=== PATIENT | female | born 1950 | race Caucasian/White ===

== ENCOUNTER → 2023-09-21 12:34 | Outpatient (REF) | payer MEDICARE, SELFPAY | LOC: HWRAD 12:34 | PROVIDERS: ATTENDING PHYSICIAN Physician Assistant; FAMILY PHYSICIAN Family Medicine | DX: M25.531 Pain in right wrist (principal); M25.532 Pain in left wrist; M35.3 Polymyalgia rheumatica; M79.641 Pain in right hand; M79.642 Pain in left hand | CPT/HCPCS: 73110; 73130 ==

== ENCOUNTER → 2023-11-24 13:08 | Outpatient (REF) | payer MEDICARE, SELFPAY | LOC: HWRCS 13:08 | PROVIDERS: ATTENDING PHYSICIAN Internal Medicine Cardiovascular Disease; FAMILY PHYSICIAN Family Medicine | DX: I34.0 Nonrheumatic mitral (valve) insufficiency (principal) | CPT/HCPCS: 93306 ==

== ENCOUNTER → 2024-04-06 06:30 | Day surgery (SDC) | payer MEDICARE, SELFPAY | LOC: GI 06:30 | PROVIDERS: ATTENDING PHYSICIAN Internal Medicine Gastroenterology; FAMILY PHYSICIAN Family Medicine | DX: Z12.11 Encounter for screening for malignant neoplasm of colon (principal); K57.30 Diverticulosis of large intestine without perforation or abscess without bleeding; K64.8 Other hemorrhoids; Z83.719 Family history of colon polyps, unspecified | CPT/HCPCS: G0105 ==

== ENCOUNTER → 2024-04-10 12:54 | Outpatient (REF) | payer MEDICARE, SELFPAY | LOC: HWWDC 12:54 | PROVIDERS: ATTENDING PHYSICIAN Family Medicine | DX: M85.89 Other specified disorders of bone density and structure, multiple sites (principal); Z12.31 Encounter for screening mammogram for malignant neoplasm of breast | CPT/HCPCS: 77063; 77067; 77080 ==

== ENCOUNTER 2024-05-15 07:29 | Day surgery (SDC) | payer MEDICARE, SELFPAY ==
[2024-05-15] VITALS (20 sets, daily range): BP systolic 117–162; BP diastolic 53–136; BMI 31.3
[2024-05-15 08:25] LABS: Hematocrit 37.6 % (37.0-47.0); Hemoglobin 12.3 g/dL (12.0-16.0); Mean Corp Hgb Conc. 32.7 g/dL (33.0-37.0); Mean Corpuscular Hgb 30.2 pg (27.0-31.0); Mean Corpuscular Volume 92.4 fL (81.0-99.0); Mean Platelet Volume 9.6 fL (7.4-10.4); Platelet Count 244 10^3/uL (130-400); Red Blood Cell Count 4.07 10^6/uL (4.20-5.40); Red Cell Dist. Width 14.9 % (11.5-14.5); White Blood Cell Count 7.8 10^3/uL (4.8-10.8)
[2024-05-15 08:40] LABS: ALT (SGPT) 16 U/L (0-35); AST (SGOT) 19 U/L (14-36); Albumin 3.9 g/dl (3.5-5.0); Alkaline Phosphatase 74 U/L (38-126); Blood Urea Nitrogen 19 mg/dl (7-17); Calcium 8.7 mg/dl (8.4-10.2); Carbon Dioxide 28 mmol/L (22-30); Chloride 103 mmol/L (98-107); Estimated Creatinine Clearance 94 ml/min; Glucose 100 mg/dl (70-99); Potassium 4.2 mmol/L (3.5-5.1); Sodium 138 mmol/L (135-145); Total Bilirubin 0.3 mg/dl (0.2-1.3); Total Protein 6.3 g/dl (6.3-8.2); eGFR > 60.00
[2024-05-15] MEDS: LOW STRENGTH ASPIRIN 324 MG PO (09:04)
[2024-05-15 10:17] LABS: ACT-LR - POC 245 Seconds (116-155)
[2024-05-15 10:25] LABS: ACT-LR - POC 253 Seconds (116-155)
[2024-05-15 10:34] LABS: ACT-LR - POC 290 Seconds (116-155)
[2024-05-15 11:03] LABS: ACT-LR - POC 253 Seconds (116-155)
--- NOTE | 2024-05-15 12:34 | ITS.CL.CATH ---
Desktop Architect - Catheterization
Cardiac Catheterization
Procedure Report:
LEFT HEART CATHETERIZATION
Date of Procedure: May 15, 2024
Referring: Eliot Sharpe
PROCEDURES:
1. Left heart catheterization, coronary angiogram.
2. Ultrasound-guided access.
3. Functional physiologic testing with IFR of ostial left circumflex.
4. Functional physiologic testing with IFR of ostial RCA.
5. Attempted percutaneous coronary artery intervention of mid LAD heavily calcified subtotal occlusion, eventually aborted due to inability to cross with a wire despite wire escalation.
INDICATION: Ms. Alston is a 73-year-old female with past medical history of hypertension, hyperlipidemia, paroxysmal atrial fibrillation on longstanding Eliquis, rheumatoid arthritis on chronic steroids and methotrexate (started over of
2023), significant family history of premature coronary artery disease, nondiabetic who is referred for a left heart catheterization to rule out obstructive CAD after undergoing a PET stress CT which was abnormal showing a reversible defect in the
anterior, anteroseptal and anterolateral regions in the setting of having ongoing dyspnea on exertion and exertional chest discomfort since January.
ACCESS: Right radial artery, 6 Kazakh sheath, under ultrasound guidance
Ultrasound was utilized for vascular access. The radial artery was visualized under ultrasound, and the vessel was patent and pulsatile. A printed image was stored permanently in the patient's medical record. Under direct ultrasound guidance, a 6
Kazakh sheath was inserted into the artery using a micropuncture kit through a modified Seldinger technique.
HEMODYNAMICS : (mmHg)
AO (s/d) : 149/68
LV (s/d) : 135/9
LVEDP : 23
CORONARY FINDINGS
DOMINANCE: Right
LEFT MAIN: The left main artery is a large-caliber vessel which gives rise to the left anterior descending artery and the left circumflex artery. There is mild distal tapering.
LEFT ANTERIOR DESCENDING: The left anterior descending artery is a medium to large caliber vessel which gives rise to 2 medium caliber diagonal branches as it courses through the anterior interventricular groove and wraps around the apex. Mid LAD
has a heavily calcified subtotal occlusion at the level of the takeoff of D2 with mid to distal LAD appearing to be a small caliber vessel, possibly underfilled. D2 is a medium caliber branching vessel with eccentric 70% ostial stenosis. D1 is a
small caliber vessel with ostial 60 to 70% stenosis. There is ADELA II flow into the distal LAD. Intervention was attempted as below.
CIRCUMFLEX: The left circumflex artery is a medium caliber vessel which gives rise to 2 small to medium caliber obtuse marginal branches. Ostial left circumflex has a eccentric 50 to 60% calcified stenosis which was IFR negative at 0.97.
RIGHT CORONARY ARTERY: The right coronary artery is a large-caliber, dominant vessel which gives rise to the right posterior descending artery and the right posterolateral system. The ostium of the RCA has a eccentric 50 to 60% stenosis with IFR in
the indeterminate zone as below at 0.91. Mid RCA has 30 to 40% stenosis just beyond the RV marginal branch.
HEMODYNAMIC ASSESSMENT OF THE OSTIAL LEFT CIRCUMFLEX WITH A VOLCANO OMNI WIRE: The origin of the left coronary artery was cannulated with a 6 Fr EBU 3.75 guide catheter. Intravenous heparin was administered and the ACT was followed during the
procedure. Two hundred micrograms of intracoronary nitroglycerin was given through the guide catheter. A [place] Omni wire was advanced to the guide catheter tip and normalized just outside the guide catheter pressure. The Omni wire was then
carefully manipulated across the stenosis in the ostial left circumflex with the iFR above the ischemic threshold serially measuring 0.97, 0.98, 0.98. The Omni wire was then pulled back to the guide catheter where the Pd/Pa measured 1.0 confirming
no baseline drift in pressure readings
CORONARY INTERVENTION: Given the IFR of ostial left circumflex lesion was negative, decision was made to attempt percutaneous intervention to the mid LAD stenosis given it was the most severe and explain the abnormalities noted on stress test.
Additional heparin was given to maintain a therapeutic ACT throughout the case. We initially attempted a 190 cm 0.014' run-through coronary wire however despite multiple passes we could not advance this past the calcified lesion with ongoing
prolapse of the wire. Next, we tried a 300 cm 0.014' integration developer 50 hydrophilic coronary wire through a dewayne microcatheter for additional support and despite multiple passes we could not navigate across the subtotal occlusion. After this, we tried a
300 cm 0.014' Fielder XT coronary wire with a HEEL SHAVER bend at the distal tip and despite multiple passes and use of a microcatheter for support we could not navigate across the lesion. Selective angiography showed that ADELA flow into the distal LAD was
now a little bit worse than when we started at 1-2 (ADELA II flow at the beginning of the case) though patient continues to remain hemodynamically stable with no EKG changes and no symptoms. At this time I discussed the case with my senior
interventional partner, Dr. Rodriguez Mazariegos who reviewed the films and we agreed that we would abort any further escalation and refer for coronary artery bypass grafting. Patient continued to remain stable. We decided to proceed with ostial RCA
functional testing with IFR to assess if RCA would also need to be grafted.
HEMODYNAMIC ASSESSMENT OF THE OSTIAL RCA WITH A VOLCANO OMNI WIRE: The origin of the right coronary artery was cannulated with a 6 Fr JR4 guide catheter. Intravenous heparin was administered and the ACT was followed during the procedure. Two
hundred micrograms of intracoronary nitroglycerin was given through the guide catheter. A [place] Omni wire was advanced to the guide catheter tip and normalized just outside the guide catheter in the ascending aorta. The Omni wire was then
carefully manipulated across the stenosis in the ostial RCA with the iFR serially measuring 0.91, 0.92, 0.92, 0.92. The Omni wire was then pulled back to the guide catheter where the Pd/Pa measured 1.0 confirming no baseline drift in pressure
readings.
SEDATION: 95 minutes of procedural sedation was utilized. An independent medical case manager was present to assist with and help manage the patient's level of consciousness and physiologic status.
RADIATION SUMMARY: Fluoro Time (min): 18.5, Dose (mGy): 709.16, DAP (Gy.cm2) : 49.6
Closure Device: Vascular band over right radial artery, 11 cc of air.
CONCLUSIONS
1. Mid LAD has a heavily calcified subtotal occlusion at the level of the takeoff of D2 with mid to distal LAD appearing to be a small caliber vessel, possibly underfilled. D2 is a medium caliber branching vessel with eccentric 70% ostial
stenosis. D1 is a small caliber vessel with ostial 60 to 70% stenosis. There is ADELA II flow into the distal LAD.
2. Attempted percutaneous coronary artery intervention of mid LAD heavily calcified subtotal occlusion, eventually aborted due to inability to cross with a wire despite wire escalation.
3. IFR negative 50 to 60% ostial left circumflex stenosis, IFR of 0.97.
4. The ostium of the RCA has a eccentric 50 to 60% stenosis with IFR in the indeterminate zone as below at 0.91. Mid RCA has 30 to 40% stenosis just beyond the RV marginal branch.
5. Elevated LVEDP at 23 mmHg.
RECOMMENDATIONS
1. Consult CT surgery for consideration for coronary artery bypass grafting to LAD, D2, distal RCA/RPDA
2. Wean radial band per protocol.
3. Closely monitor overnight on telemetry. Patient is currently symptom-free.
4. Aggressive management of cardiovascular risk factors.
5. Eventual referral for outpatient cardiac rehab.
Copy to: Eliot Sharpe
Jess Perez MD, FACC, [facility]
--- NOTE | 2024-05-15 13:55 | CONSULT.CT ---
Consultation
-
Date/Time Consultation Requested: 05/15/24
Date/Time Consultation Performed: 05/15/24
Requesting Provider: Mario Perez
Performing Provider: Chelsy De La Fuente
Reason for Consultation: CABG evaluation
Patient History
Physicians
Family Physician: Allison Amaral
Outpatient Manager Style: Viral Christie
Inpatient Manager Style: [facility]
History of Present Illness
Amy Alston is a 73-year-old female who presented on 05/15/2024 for elective left heart cath to evaluate an abnormal PET stress CT with reversible defect in the anterior, anteroseptal and anterolateral regions in the setting of having
ongoing dyspnea on exertion and exertional chest discomfort ('indigestion/pressure sensation') since January. Patient has a history significant for hypertension, hyperlipidemia, obesity, rheumatoid arthritis (on methotrexate and steroid since
March 2024), and paroxysmal atrial fibrillation with last Eliquis ingested on 05/12/2024.
left heart cath (05/15/[address] Perez):
LEFT MAIN: mild distal tapering.
LEFT ANTERIOR DESCENDING: subtotal occlusion mid LAD. 70% ostial D2 stenosis. Ostial 60 to 70% stenosis of small caliber D1. There is ADELA II flow into the distal LAD. Intervention was attempted
CIRCUMFLEX: Ostial left circumflex has a eccentric 50 to 60% calcified stenosis which was IFR negative at 0.97.
RIGHT CORONARY ARTERY: Eccentric 50 to 60% ostial RCA stenosis with IFR in the indeterminate zone as below at 0.91. Mid RCA has 30 to 40% stenosis just beyond the RV marginal branch.
TTE (11/24/23):
EF 60 to 65%. Mild posterior mitral valve leaflet prolapse with mild�moderate mitral regurgitation
Past Medical History
Past Medical History: Atrial Fib (on Eliquis), HTN, Hypercholesterolemia and Other (Rheumatoid arthritis on methotrexate and prednisone, overactive bladder, obesity (BMI 31.2))
Past Surgical History
Past Surgical History: Orthopedic (Right total knee replacement) and Other (Bilateral cataract extraction)
Family History
Father: Cause of (DC age 71)
Social History
Alcohol: Occasional (2 x week)
Drug: None
Tobacco: Non-Smoker
Personal:
Living: With Family
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
Allergies
Allergy/AdvReac Type Severity Reaction Status Date / Time
atorvastatin Allergy lightheaded, Verified 05/15/24 08:21
dizzy
azithromycin Allergy hypertensio Verified 05/15/24 08:21
[From Zithromax Z-Faheem] n
nickel Allergy HIVES/PRURI Verified 05/15/24 08:21
TIS
neoprene Allergy Rash Uncoded 05/15/24 08:21
Home Medications
�Medication �Instructions �Recorded �Confirmed �Type
Sunflower 3 1 tab PO DAILY 04/20/22 05/15/24 History
rnflyds-azwvvypyx-duce 333 mg-133 1 tab PO DAILY 04/20/22 05/15/24 History
mg-5 mg tablet
cholecalciferol (vitamin D3) 25 25 mcg PO DAILY 04/20/22 05/15/24 History
mcg (1,000 unit) chewable tablet
(Vitamin D3)
coenzyme Q10 100 mg capsule (Co 100 mg PO DAILY 04/20/22 05/15/24 History
Q-10)
estradiol 1.25 gram/actuation 1.25 g transdermal DAILY 04/20/22 05/15/24 History
(0.06%) transdermal gel pump
(EstroGel)
lactobacillus combination no.4 3 3,000 mmu cells PO DAILY 04/20/22 05/15/24 History
billion cell capsule (Probiotic)
mirabegron 25 mg tablet,extended 50 mg PO HS 04/20/22 05/15/24 History
release 24 hr (Myrbetriq)
multivitamin 1 tab PO DAILY 04/20/22 05/15/24 History
rosuvastatin 5 mg tablet 5 mg PO MOWEFR 04/20/22 05/15/24 History
apixaban 5 mg tablet (Eliquis) 5 mg PO BID #1 tab 05/13/22 05/15/24 Rx
losartan 50 mg tablet 50 mg PO DAILY #1 tab 05/13/22 05/15/24 Rx
acetaminophen 500 mg tablet 1,000 mg PO Q6H PRN Arthritis in 05/15/24 05/15/24 History
(Acetaminophen Extra Strength) wrists, Headache
amlodipine 5 mg tablet 5 mg PO HS 05/15/24 05/15/24 History
folic acid 1 mg tablet 1 mg PO DAILY 05/15/24 05/15/24 History
hyoscyamine 0.15 mg tablet 0.25 mg PO BID 05/15/24 05/15/24 History
methotrexate 2.5 mg/mL oral 15 mg PO SA 05/15/24 05/15/24 History
solution
metoprolol succinate 25 mg 12.5 mg PO BID 05/15/24 05/15/24 History
tablet,extended release 24 hr
minoxidil 2.5 mg tablet 2.5 mg PO DAILY 05/15/24 05/15/24 History
prednisone 5 mg tablet 4 mg PO DAILY 05/15/24 05/15/24 History
Review of Systems
-
History Source: Patient
General: Reports Fatigue
HEENT: Reports No Symptoms
Respiratory: Reports No Symptoms
Cardiac: Reports Chest Pain
Abdomen/GI: Reports No Symptoms
: Reports No Symptoms
Musculoskeletal: Reports No Symptoms
Skin: Reports No Symptoms
Neurological: Reports No Symptoms
Vascular: Reports No Symptoms
Physical Exam
Vital Signs
Temp 97.4 F 05/15/24 07:50
Temp route: Oral 05/15/24 07:50
Pulse 68 05/15/24 13:45
Resp Rate 21 05/15/24 13:45
Blood pressure 125/56 05/15/24 13:30
Blood pressure extremity used: Left upper arm 05/15/24 12:57
Position: Lying 05/15/24 12:57
MAP (cuff-Melissa Monitor) 77 05/15/24 13:30
SaO2 97 05/15/24 13:45
Oxygen Mode of Delivery Room air 05/15/24 12:57
Can the patient verbally communicate their pain? Yes 05/15/24 12:57
Actual Weight 100.7 kg 05/15/24 07:48
Body Mass Index (BMI) 31.3 05/15/24 07:48
Labs
05/15/24 08:12
05/15/24 08:12
Exam
General: Well Developed, Well Nourished and No Apparent Distress
HEENT: Normocephalic, Anicteric and Moist Mucous Membranes
Neck: Trachea Midline
Respiratory: Clear
Cardiac: Irregular Rhythm
GI: Soft, Non Tender, Non Distended and Normal Bowel Sounds
Rectal: Deferred by Provider
Skin: Warm and Dry
Neuro: AO x 3, No Motor Deficits and Nonfocal/Grossly Intact
Extremities: Pulses (+2/4 DP pulses B/L)
Lymph: No Lymphadenopathy
Psych: Calm
Assessment / Plan
-
73-year-old female with multivessel coronary disease and preserved EF by echo from October,
- Last Eliquis dose was 05/12/2024
- Surgeon to review imaging and discuss with Dr. Givens and patient for option of surgery versus stenting versus hybrid approach
- Patient on chronic methotrexate and prednisone
- if deemed surgical candidate patient will need to have losartan held for 2 days prior to surgery
- Will need STS risk score calculation and preop diagnostic orders placed if deemed a surgical candidate
Data Reviewed
-
EKG: Report Reviewed by me and Discussed with Physician
Experience Planning Strategist: Report Reviewed by me and Discussed with Physician
Echo: Report Reviewed by me and Discussed with Physician
Labs: Labs Reviewed by me and Discussed with Physician
--- NOTE | 2024-05-15 16:05 | PTCARENOTE ---
Patient received from the laborer syrup machine. Right radial dressing CDI, ecchymotic. NSR, VSS, deneis chest pain. Plan of care reviewed, call ashton in reach
[2024-05-15] MEDS: CRESTOR 5 MG PO (16:44)
[2024-05-15 18:13] LABS: Total CK 53 U/L (30-135)
[2024-05-15] MEDS: TOPROL XL 12.5 MG PO (20:02)
[2024-05-15] MEDS: LEVSIN PO (20:05)
[2024-05-15] MEDS: MYRBETRIQ EXTENDED RELEASE 50 MG PO (22:10)
[2024-05-15] MEDS: NORVASC 5 MG PO (22:10)
[2024-05-16] VITALS (12 sets, daily range): BP systolic 116–159; BP diastolic 50–102; BMI 30.8
--- NOTE | 2024-05-16 00:22 | PTCARENOTE ---
Rec'd pt at change of shift. Pt AAO*3, VSS, and in NSR on TELE monitor. Pt denies any pain or discomfort. Pt with right radial cath site dressing CDI. Pt agreed to RUE restriction. Pt resting with call ashton in reach. Pt denies any questions
concerns at this time. Plan of care ongoing. See flowchart, worklist, and MAR for full assessment and pt care. Pt resting with call ashton in reach.
[2024-05-16 01:09] LABS: Blood Urea Nitrogen 16 mg/dl (7-17); Calcium 8.3 mg/dl (8.4-10.2); Carbon Dioxide 26 mmol/L (22-30); Chloride 105 mmol/L (98-107); Estimated Creatinine Clearance 110 ml/min; Glucose 103 mg/dl (70-99); Potassium 4.1 mmol/L (3.5-5.1); Sodium 138 mmol/L (135-145); Total CK 51 U/L (30-135); eGFR > 60.00
[2024-05-16 06:14] LABS: Hematocrit 36.2 % (37.0-47.0); Hemoglobin 11.8 g/dL (12.0-16.0); Mean Corp Hgb Conc. 32.6 g/dL (33.0-37.0); Mean Corpuscular Hgb 29.7 pg (27.0-31.0); Mean Corpuscular Volume 91.2 fL (81.0-99.0); Mean Platelet Volume 9.7 fL (7.4-10.4); Platelet Count 229 10^3/uL (130-400); Red Blood Cell Count 3.97 10^6/uL (4.20-5.40); Red Cell Dist. Width 14.9 % (11.5-14.5); White Blood Cell Count 6.9 10^3/uL (4.8-10.8)
[2024-05-16 06:18] LABS: HDL Cholesterol 69 mg/dl; LDL Cholesterol, Calculated 88 mg/dl; Total CK 54 U/L (30-135); Total Cholesterol 177 mg/dl (50-199); Triglyceride 103 mg/dl (10-149); Very Low Density Lipoprotein 20 mg/dl (0-30)
[2024-05-16] MEDS: LEVSIN PO ×2 (07:32→22:45)
[2024-05-16] MEDS: TOPROL XL 12.5 MG PO ×2 (07:37→21:00)
[2024-05-16] MEDS: DELTASONE 4 MG PO (07:37)
[2024-05-16] MEDS: LOW STRENGTH ASPIRIN 81 MG PO (07:38)
[2024-05-16] MEDS: COZAAR 50 MG PO (07:38)
[2024-05-16] MEDS: LONITEN 2.5 MG PO (07:38)
--- NOTE | 2024-05-16 08:57 | PTCARENOTE ---
Assumed care. Chest pain free, NSR. NPO, PO meds given with a sip of water, call ashton in reach
--- NOTE | 2024-05-16 10:47 | CARDSERVLU ---
Echocardiogram with Lumason completed after protocol screening completed. Allergies verified.
Patent IV site: __left FA_
IV site flushed with 0.9% NaCl pre and post administration.
Diluted bolus method utilized to enhance visualization of ventricular almazan.
Total volume given: __1.5__ mL
Patient tolerated all procedures well without complications.
--- NOTE | 2024-05-16 12:01 | PTCARENOTE ---
Patient sent to the dairy lab technician
[2024-05-16 12:46] LABS: ACT-LR - POC 252 Seconds (116-155)
[2024-05-16 12:56] LABS: ACT-LR - POC 277 Seconds (116-155)
[2024-05-16 14:10] LABS: ACT-LR - POC 279 Seconds (116-155)
[2024-05-16 14:25] LABS: ACT-LR - POC 263 Seconds (116-155)
[2024-05-16 14:35] LABS: ACT-LR - POC 298 Seconds (116-155)
[2024-05-16 15:19] LABS: ACT-LR - POC 313 Seconds (116-155)
[2024-05-16 15:29] LABS: ACT-LR - POC 281 Seconds (116-155)
--- NOTE | 2024-05-16 15:44 | CM ---
spoke to pt in room, she is prev indep, lives with her brother in a 1 story home with 1 step to enter. she has a cane and a walker to use if needed. plan is for dc to home when medically stable.
[2024-05-16 15:53] LABS: ACT-LR - POC > 397 Seconds (116-155)
--- NOTE | 2024-05-16 16:28 | PTCARENOTE ---
Patient returned from the geophysical laboratory director awake and alert. Placed on telemetry, EKG completed. VSS, right radial band intact with 12 cc of air. Family at bedside, voided, call ashton in reach
--- NOTE | 2024-05-16 16:32 | ITS.CL.CATH ---
Head Neck Surgeon - Catheterization
Cardiac Catheterization
Procedure Report:
LEFT HEART CATHETERIZATION AND CORONARY INTERVENTION
Date of Procedure: May 16, 2024
Referring: Eliot Sharpe
PROCEDURES:
1. Left heart catheterization, selective left coronary angiogram.
2. Ultrasound-guided access.
3. IVL shockwave atherectomy
4. Successful percutaneous coronary artery intervention of a complex heavily calcified subtotal mid LAD occlusion with one 3.0 x 18 mm Medtronic Rip drug-eluting stent, postdilated with a 3.25 x 8 mm NC balloon at 18 adrianne proximally based on IVUS
guidance with an excellent angiographic result and ADELA-3 flow restored into the distal vessels.
5. Intravascular ultrasound (IVUS)
INDICATION: Ms. Alston is a 73-year-old female with past medical history of hypertension, hyperlipidemia, paroxysmal atrial fibrillation on longstanding Eliquis, rheumatoid arthritis on chronic steroids and methotrexate (started over gi of
2023), significant family history of premature coronary artery disease, nondiabetic who is referred for a left heart catheterization to rule out obstructive CAD after undergoing a PET stress CT which was abnormal showing a reversible defect in the
anterior, anteroseptal and anterolateral regions in the setting of having ongoing dyspnea on exertion and exertional chest discomfort since January. Heart catheterization/coronary angiogram yesterday revealed a heavily calcified subtotal occlusion
in the mid LAD with attempted PCI which was eventually aborted due to inability to cross despite wire escalation. CT surgery evaluated the patient and given multiple significant comorbid conditions and in the setting of chronic steroid use, she was
felt to be not a great surgical candidate. After heart team discussion and lengthy discussion with patient and her family in regards to risk and benefits, decision was to bring her back to the lab to attempt PCI another time.
ACCESS: Right radial artery, 6 Tongan sheath, under ultrasound guidance
Ultrasound was utilized for vascular access. The radial artery was visualized under ultrasound, and the vessel was patent and pulsatile. An image was stored permanently in the patient's medical record. Under direct ultrasound guidance, a 6 Tongan
sheath was inserted into the artery using a micropuncture kit through a modified Seldinger technique.
HEMODYNAMICS : (mmHg)
AO (s/d) : 147/66
LV (s/d) : 151/9
LVEDP : 20
CORONARY FINDINGS
DOMINANCE: Right
LEFT MAIN: The left main artery is a large-caliber vessel which gives rise to the left anterior descending artery and the left circumflex artery. There is mild distal tapering.
LEFT ANTERIOR DESCENDING: The left anterior descending artery is a medium to large caliber vessel which gives rise to 2 medium caliber diagonal branches as it courses through the anterior interventricular groove and wraps around the apex. Mid LAD
has a heavily calcified subtotal occlusion at the level of the takeoff of D2 with mid to distal LAD appearing to be a small caliber vessel, possibly underfilled. D2 is a medium caliber branching vessel with eccentric 70% ostial stenosis. D1 is a
small caliber vessel with ostial 60 to 70% stenosis. There is ADELA II flow into the distal LAD. He proceeded with intervention as below.
CIRCUMFLEX: The left circumflex artery is a medium caliber vessel which gives rise to 2 small to medium caliber obtuse marginal branches. Ostial left circumflex has a eccentric 50 to 60% calcified stenosis which was IFR negative at 0.97 on heart
catheterization yesterday..
RIGHT CORONARY ARTERY: The RCA was not selectively shot again today. On imaging yesterday, the right coronary artery is a large-caliber, dominant vessel which gives rise to the right posterior descending artery and the right posterolateral system.
The ostium of the RCA has an eccentric 50 to 60% stenosis with IFR in the indeterminate zone as below at 0.91. Mid RCA has 30 to 40% stenosis just beyond the RV marginal branch.
CORONARY INTERVENTION: The left coronary artery was selectively engaged using a 6 Tongan EBU 3.75 guide catheter. Additional heparin was given to maintain a therapeutic ACT throughout the case. Using a 6 Tongan guideliner support, we initially
tried a 300 cm 0.014' whisper coronary wire through a quick cross microcatheter and after multiple passes we could not cross the lesion. We then tried to separate Fielder XT's, 1 with a curved bend and another with a PURCHASE ORDER CHECKER bend and transiently it
appeared that we had progressed a bit getting across the subtotal occlusion however given the trajectory of the wire, we were worried that it may be subintimal. At this point we decided to try a different area using a 300 cm 0.014' pilot boat deckhand 200 and
after significant manipulation and multiple passes we were eventually able to transverse the subtotal occlusion into the diagonal branch. Once we confirmed we were intraluminal by angiography and using multiple different orthogonal views, we
advanced the quick cross microcatheter across the lesion into the distal vessel. Through the microcatheter we switched out the pilot boat deckhand 200 wire for a extra sport wire to provide additional support. We predilated the lesion after bringing the quick
cross microcatheter out using a 1.5 x 12 mm semicompliant balloon at 14 adrianne with multiple inflations. At this point while retracting the semicompliant balloon back out to proceed with further predilatation's, unfortunately for unclear reasons, the
wire got pulled out along with the balloon. Given we had lost wire access, we retracted the guide liner out as well. At this point we rewired using a 180 cm 0.014' run-through coronary wire and given we had created a channel with her balloon
inflations we were able to navigate into the distal vessel. Over the run-through wire we further predilated using a 2.0 x 15 mm semicompliant balloon at 14 adrianne and subsequently with a 3.0 x 15 mm semicompliant balloon at 14 adrianne. Given a small
waist was still present at the lesion site, we decided to proceed with IVL shockwave to modify the calcium that was present there. We used a 3.5 x 12 mm IV L shockwave balloon and delivered all 12 cycles and reassuring areas over the lesion. Post
shockwave, we delivered a 3.0 x 18 mm Medtronic Marvin drug-eluting stent which expanded well at 14 adrianne. We then sized the vessel using xCloud IVUS [place] eye catheter and using IVUS guidance we postdilated using a 3.0 x 15 mm NC balloon at 18 adrianne
distally and 20 adrianne proximally. We still noted a slight waist at the proximal edge of the stent. We further postdilated this area using a 3.25 x 8 mm NC balloon at 18 adrianne with an excellent angiographic result and ADELA-3 flow restored into the
distal vessels. The patient tolerated the procedure well. She was loaded with 600 mg of Plavix at the end of the case. No acute complications.
SEDATION: 193 minutes of procedural sedation was utilized. An independent medical science liaison was present to assist with and help manage the patient's level of consciousness and physiologic status.
RADIATION SUMMARY: Fluoro Time (min): 52.7, Dose (mGy): 2520.35, DAP (Gy.cm2) : 144.75
Closure Device: Vascular band over right radial artery, 11 cc of air.
CONCLUSIONS
1. Successful percutaneous coronary artery intervention of a complex heavily calcified subtotal mid LAD occlusion with one 3.0 x 18 mm Medtronic Rip drug-eluting stent, postdilated with a 3.25 x 8 mm NC balloon at 18 adrianne proximally based on IVUS
guidance post IVL Shockwave with an excellent angiographic result and ADELA-3 flow restored into the distal vessels.
2. Elevated LVEDP at 20 mmHg.
RECOMMENDATIONS
1. Plan for daily baby aspirin, Plavix 75 mg and Eliquis for 1 week with plan to discontinue aspirin at that time and continue Eliquis Plavix for at least 1 year.
2. Wean radial band per protocol.
3. Closely monitor overnight on telemetry.
4. Aggressive management of cardiovascular risk factors.
5. Eventual referral for outpatient cardiac rehab.
Copy to: Eilot Sharpe
Jess Perez MD, [facility], [facility]
[2024-05-16] MEDS: CRESTOR 5 MG PO (17:13)
--- NOTE | 2024-05-16 22:00 | PTCARENOTE ---
Rec'd pt at change of shift. Pt AAO*3, VSS, and in NSR on TELE monitor. Pt denies any pain or discomfort. Pt with right radial site CDI and aware of limb restrictions. Pt with bleeding from previous IV site on L AC that was removed, pressure
held for 10 minutes. Dressing applied. Limb elevated. Dressing CDI with out any leaking. Pt agreed to report any new bleeding to RN immediately. Pt resting with call ashton in reach. Plan of care ongoing.
[2024-05-16] MEDS: NORVASC 5 MG PO (22:45)
[2024-05-16] MEDS: MYRBETRIQ EXTENDED RELEASE 50 MG PO (22:45)
[2024-05-17 03:12] VITALS: BP 140/66
[2024-05-17 03:17] VITALS: BMI 30.5
[2024-05-17 03:52] LABS: Hematocrit 37.8 % (37.0-47.0); Hemoglobin 12.5 g/dL (12.0-16.0); Mean Corp Hgb Conc. 33.1 g/dL (33.0-37.0); Mean Corpuscular Hgb 29.8 pg (27.0-31.0); Mean Corpuscular Volume 90.2 fL (81.0-99.0); Mean Platelet Volume 9.8 fL (7.4-10.4); Platelet Count 266 10^3/uL (130-400); Red Blood Cell Count 4.19 10^6/uL (4.20-5.40); Red Cell Dist. Width 14.9 % (11.5-14.5); White Blood Cell Count 11.1 10^3/uL (4.8-10.8)
[2024-05-17 04:14] LABS: Blood Urea Nitrogen 11 mg/dl (7-17); Calcium 9.1 mg/dl (8.4-10.2); Carbon Dioxide 21 mmol/L (22-30); Chloride 103 mmol/L (98-107); Estimated Creatinine Clearance 109 ml/min; Glucose 107 mg/dl (70-99); Potassium 4.5 mmol/L (3.5-5.1); Sodium 136 mmol/L (135-145); eGFR > 60.00
--- NOTE | 2024-05-17 07:47 | W.PN.CARDCBS ---
Today's Communication / Plan
-
Triple therapy for 1 week then plavix/eliquis only
cardiac rehab
followup [facility] in 2-3 weeks
home today
Impression / Plan
-
PCP: Allison Amaral MD
CDY: Eliot Sharpe MD
73 y/o, PMH HTN, HLD, PAF on longstanding Eliquis, PMR/RA on chronic steroids and methotrexate (started over 2023), significant FH premature CAD. New onset JOHNSTON/exertional chest discomfort with indigestion, referred for PET stress CT
which was abnormal showing a reversible defect in the anterior, anteroseptal and anterolateral regions, EF 67% rest and decreased to 55% w/stress.
LHC on 05/15 with mid LAD subtotal occlusion, unable to cross with multiple attempts with multiple wires.
Residual CAD in LCx iFr negative, RCA iFr indeterminate at 0.91
CT surgery consult determined increased risk and better PCI candidate at this time.
LHC 05/16- s/p complex LAD PCI with shockwave lithotripsy, angioplasty and SAMANTHA.
Echo 05/16- nml LVSF, EF 55%, mild distal anterosept HK, mild MVP w/mild-mod MR, mild TR, PASP 31
IMPRESSION:
CAD w/angina and abnormal PET/NST
s/p LAD subtotal occlusion shockwave/PCI w/SAMANTHA
residual LCx, RCA CAD to be medically managed
Tele- NSR 70s, no vt/arrhythmia
radial cath site tender but soft- likely d/t repeat cath via same access site, relieved w/tylenol
DAPT w/asa, plavix
continue Toprol 12.5 BID as before
Echo results noted
cardiac rhehab consulted
followup at [facility] as scheduled
PAF- [id number]=2, maintained on eliquis 5mg/BID
resume eliquis this morning
will be on triple therapy with asa/plavix/eliquis for 1 week, then stop asa and remain on plavix/eliquis only
will start PPI
HLD- lipid profile noted
has increased myalgias with higher doses statin and has been on rosuvastatin 5mg 3x/week
will increase to daily for now and monitor
HTN- stable on current therapy
PMR/RA- on chronic steroids, MTX- per rheumatology
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
Subjective
Date of Service: May 17, 2024
Denies cp/palps/dyspnea
radial cath site tender with bruising- relieved w/tylenol
oob ambulating
Objective
Labs:
05/17/24 03:28
05/17/24 03:28
Labs
Hgb 12.5 g/dL (12.0-16.0) 05/17/24 03:28
Hct 37.8 % (37.0-47.0) 05/17/24 03:28
Plt Count 266 10^3/uL (130-400) 05/17/24 03:28
Sodium 136 mmol/L (135-145) 05/17/24 03:28
Potassium 4.5 mmol/L (3.5-5.1) 05/17/24 03:28
BUN 11 mg/dl (7-17) 05/17/24 03:28
Creatinine 0.6 mg/dL (0.6-1.0) 05/17/24 03:28
Glucose 107 mg/dl (70-99) H 05/17/24 03:28
Vital Signs and I&O:
Vital Signs
Temp Pulse Resp BP Pulse Ox
98.5 F 71 16 140/66 96
05/17/24 03:12 05/17/24 06:00 05/17/24 03:12 05/17/24 03:12 05/17/24 03:12
Vital Signs
Temp Pulse Resp BP Pulse Ox
98.5 F 71 16 140/66 96
05/17/24 03:12 05/17/24 06:00 05/17/24 03:12 05/17/24 03:12 05/17/24 03:12
Intake & Output
05/15/24 05/16/24 05/17/24 05/18/24
06:59 06:59 06:59 06:59
Intake Total 2800 / 2800
Balance 2800 / 2800
Physical Exam
Physical Exam
AAOx3, MAEE 09/04
RRR S1 S2 no murmurs
CTA bilat, non labored
soft abd, + bs
right radial cath site without ht/bleeding, mild bruising noted, tender to palpation, soft
bilat extremities w/palpable distal pulses, no edema
[2024-05-17 07:51] VITALS: BP 131/54
[2024-05-17] MEDS: DELTASONE 4 MG PO (07:51)
[2024-05-17] MEDS: PROTONIX 40 MG PO (07:51)
[2024-05-17] MEDS: PLAVIX 75 MG PO (07:51)
[2024-05-17] MEDS: TYLENOL 650 MG PO (07:52)
[2024-05-17] MEDS: TOPROL XL 12.5 MG PO (07:52)
[2024-05-17] MEDS: LONITEN 2.5 MG PO (07:52)
[2024-05-17] MEDS: LOW STRENGTH ASPIRIN 81 MG PO (07:52)
[2024-05-17] MEDS: LEVSIN 0.25 MG PO (07:52)
[2024-05-17] MEDS: ELIQUIS 5 MG PO (07:52)
[2024-05-17] MEDS: COZAAR 50 MG PO (07:52)
--- NOTE | 2024-05-17 11:01 | PTCARENOTE ---
Removed IV and tele. Belongings collected and sent home w/ pt. Discharge instructions reviewed w/ pt. Verbalizes understanding. Escorted via WC and staff assist. Discharged to home.
--- NOTE | 2024-05-17 11:18 | W.DS.TRANS ---
DC Summary - [employer]
-
Discharge Instructions:
Sleep Apnea Risk Low
Discharge Diagnosis/Procedures Angioplasty, lithotripsy and stent to Left
Anterior Descending artery
Diet Low Cholesterol
Driving Restrictions No driving for 24 hours
Other Services Cardiac Rehab
Instructions:
Stand-Alone Forms: DC Instructions- Cath/EP Lab
Changes to Home Medications: Yes
Discharge Medications:
DC Medications w/original date entered in [facility]
Aurora 3 1 tab PO DAILY 04/20/22
jtajstq-[id number]-ippi 333 mg-133 mg-5 mg tablet 1 tab PO DAILY 04/20/22
cholecalciferol (vitamin D3) 25 mcg (1,000 unit) chewable tablet (Vitamin D3) 25 mcg PO DAILY 04/20/22
coenzyme Q10 100 mg capsule (Co Q-10) 100 mg PO DAILY 04/20/22
estradiol 1.25 gram/actuation (0.06%) transdermal gel pump (EstroGel) 1.25 g transdermal DAILY 04/20/22
lactobacillus combination no.4 3 billion cell capsule (Probiotic) 3,000 mmu cells PO DAILY 04/20/22
mirabegron 25 mg tablet,extended release 24 hr (Myrbetriq) 50 mg PO HS 04/20/22
multivitamin 1 tab PO DAILY 04/20/22
apixaban 5 mg tablet (Eliquis) 5 mg PO BID #1 tab 05/13/22
losartan 50 mg tablet 50 mg PO DAILY #1 tab 05/13/22
acetaminophen 500 mg tablet (Acetaminophen Extra Strength) 1,000 mg PO Q6H PRN Arthritis in wrists, Headache 05/15/24
amlodipine 5 mg tablet 5 mg PO HS 05/15/24
folic acid 1 mg tablet 1 mg PO DAILY 05/15/24
hyoscyamine 0.15 mg tablet 0.25 mg PO BID 05/15/24
methotrexate 2.5 mg/mL oral solution 15 mg PO SA 05/15/24
metoprolol succinate 25 mg tablet,extended release 24 hr 12.5 mg PO BID 05/15/24
minoxidil 2.5 mg tablet 2.5 mg PO DAILY 05/15/24
prednisone 5 mg tablet 4 mg PO DAILY 05/15/24
aspirin 81 mg chewable tablet 81 mg PO DAILY #7 tabs 05/16/24
clopidogrel 75 mg tablet 75 mg PO DAILY #90 tabs 05/16/24
rosuvastatin 10 mg tablet 5 mg (1/2 x 10 mg) PO QPM #90 tabs 05/16/24
pantoprazole 40 mg tablet,delayed release 40 mg PO DAILY #90 tabs 05/17/24
Home Medication Changes
NEW: aspirin, clopidogrel, pantoprazole
DOSE INCREASE: rosuvastatin
Pending Results: No
== END 2024-05-17 11:04 | disposition home or self-care (01) ==
LOC: CATH 07:29
PROVIDERS: Nurse Practitioner; ATTENDING PHYSICIAN Internal Medicine Interventional Cardiology; CONSULT PHYSICIAN Thoracic Surgery (Cardiothoracic Vascular Surgery); FAMILY PHYSICIAN Family Medicine; OTHER PHYSICIAN Internal Medicine Cardiovascular Disease
DX: I25.119 Atherosclerotic heart disease of native coronary artery with unspecified angina pectoris (principal); Z79.01 Long term (current) use of anticoagulants; Z79.52 Long term (current) use of systemic steroids; Z82.49 Family history of ischemic heart disease and other diseases of the circulatory system; M06.9 Rheumatoid arthritis, unspecified; I48.0 Paroxysmal atrial fibrillation; E78.00 Pure hypercholesterolemia, unspecified; I10 Essential (primary) hypertension; M35.3 Polymyalgia rheumatica; K21.9 Gastro-esophageal reflux disease without esophagitis; K30 Functional dyspepsia; I25.10 Atherosclerotic heart disease of native coronary artery without angina pectoris; I25.84 Coronary atherosclerosis due to calcified coronary lesion; E66.9 Obesity, unspecified; I08.3 Combined rheumatic disorders of mitral, aortic and tricuspid valves; I70.0 Atherosclerosis of aorta; Z68.42 Body mass index [BMI] 45.0-49.9, adult; Z79.631 Long term (current) use of antimetabolite agent; Z79.02 Long term (current) use of antithrombotics/antiplatelets; Z79.899 Other long term (current) drug therapy
CPT/HCPCS: 92978; 99152 ×2; 99153 ×2; 93799 ×2; 92972; C1761; 76937; 80048; 80053; 80061; 82550; 85027; 85347; 93005; 93306; 93458; C1725; C1753; C1769; C1874; C1894; C9600; C9602; Q9950; Q9967

== ENCOUNTER 2024-06-28 15:30 | Outpatient (RCR) | payer MEDICARE, SELFPAY | END 2024-06-28 23:59 | disposition home or self-care (01) | LOC: CRHB 15:30 | PROVIDERS: ATTENDING PHYSICIAN Internal Medicine Cardiovascular Disease; FAMILY PHYSICIAN Family Medicine | DX: I25.110 Atherosclerotic heart disease of native coronary artery with unstable angina pectoris (principal); Z95.5 Presence of coronary angioplasty implant and graft | CPT/HCPCS: G0422; G0423 ==

== ENCOUNTER → 2024-07-20 14:30 | Outpatient (REF) | payer MEDICARE, SELFPAY | LOC: HWRAD 14:30 | PROVIDERS: ATTENDING PHYSICIAN Podiatrist Foot & Ankle Surgery; FAMILY PHYSICIAN Family Medicine | DX: M19.071 Primary osteoarthritis, right ankle and foot (principal) | CPT/HCPCS: 73610 ==

== ENCOUNTER 2024-07-31 15:23 | Outpatient (RCR) | payer MEDICARE, SELFPAY | END 2024-07-31 23:59 | disposition home or self-care (01) | LOC: CRHB 15:23 | PROVIDERS: ATTENDING PHYSICIAN Internal Medicine Cardiovascular Disease; FAMILY PHYSICIAN Family Medicine | DX: I25.110 Atherosclerotic heart disease of native coronary artery with unstable angina pectoris (principal); Z95.5 Presence of coronary angioplasty implant and graft | CPT/HCPCS: G0422; G0423 ==

== ENCOUNTER 2024-08-28 15:47 | Outpatient (RCR) | payer MEDICARE, SELFPAY | END 2024-08-28 23:59 | disposition home or self-care (01) | LOC: CRHB 15:47 | PROVIDERS: ATTENDING PHYSICIAN Internal Medicine Cardiovascular Disease; FAMILY PHYSICIAN Family Medicine | DX: I25.110 Atherosclerotic heart disease of native coronary artery with unstable angina pectoris (principal); Z95.5 Presence of coronary angioplasty implant and graft | CPT/HCPCS: G0422; G0423 ==

== ENCOUNTER 2024-09-20 15:22 | Outpatient (RCR) | payer MEDICARE, SELFPAY ==
[2024-09-15 11:34] LABS: HDL Cholesterol 75 mg/dl; LDL Cholesterol, Calculated 76 mg/dl; Total Cholesterol 171 mg/dl (50-199); Triglyceride 102 mg/dl (10-149); Very Low Density Lipoprotein 20 mg/dl (0-30)
== END 2024-09-20 23:59 | disposition home or self-care (01) ==
LOC: CRHB 15:22
PROVIDERS: ATTENDING PHYSICIAN Internal Medicine Cardiovascular Disease; FAMILY PHYSICIAN Family Medicine
DX: I25.110 Atherosclerotic heart disease of native coronary artery with unstable angina pectoris (principal); Z95.5 Presence of coronary angioplasty implant and graft
CPT/HCPCS: 36415; 80061; G0422; G0423

== ENCOUNTER → 2024-10-12 16:16 | Outpatient (REF) | payer MEDICARE, SELFPAY | LOC: HWRAD 16:16 | PROVIDERS: ATTENDING PHYSICIAN Family Medicine | DX: Z91.81 History of falling (principal); S80.12XA Contusion of left lower leg, initial encounter; M79.662 Pain in left lower leg; M25.572 Pain in left ankle and joints of left foot | CPT/HCPCS: 73590; 73610 ==

== ENCOUNTER → 2024-10-13 11:19 | Outpatient (REF) | payer MEDICARE, SELFPAY | LOC: RAD 11:19 | PROVIDERS: ATTENDING PHYSICIAN Family Medicine | DX: M79.89 Other specified soft tissue disorders (principal); M79.662 Pain in left lower leg | CPT/HCPCS: 93971 ==

== ENCOUNTER 2024-10-20 16:30 | Outpatient (RCR) | payer MEDICARE, SELFPAY | END 2024-10-23 17:44 | disposition home or self-care (01) | LOC: CRHB 16:30 | PROVIDERS: ATTENDING PHYSICIAN Internal Medicine Cardiovascular Disease; FAMILY PHYSICIAN Family Medicine | DX: I25.110 Atherosclerotic heart disease of native coronary artery with unstable angina pectoris (principal); Z95.5 Presence of coronary angioplasty implant and graft | CPT/HCPCS: G0422; G0423 ==